=== PATIENT | male | born 1970 | race Caucasian/White ===

== ENCOUNTER 2017-01-06 02:28 | Inpatient (IN) | payer OTHER ==
[~2017-01-06] VITALS: Ht 175.3 cm; Wt 46.5 kg
[~2017-01-06 02:28] MED LIST: K1015L GT; LACO100 GT; LACT1TAB11 GT; LEVO100T4 GT; LINA145C GT; MIDO5TAB23 GT; RANI150T7 GT; VIT500LI GT; VITAD1000 GT
[2017-01-06] MEDS ORDERED: IPRATROPIUM BROMIDE 0.5 MG/2.5 ML NEB SOLUTION NEB ONE (02:45)
[2017-01-06] MEDS ORDERED: ALBUTEROL SULFATE 5 MG/ML 20 ML NEB SOLN [BULK] NEB ONE (02:45)
[2017-01-06] MEDS ORDERED: 0.9% SODIUM CHLORIDE 5 ML NEB SOLUTION NEB ONE (02:51)
[2017-01-06 03:08] LABS: BASOPHILS % (AUTO) 0.4 % (0.0-2.0); EOSINOPHILS % (AUTO) 0.1 % (1.0-6.0); HEMATOCRIT 34.4 % (41-53); HEMOGLOBIN 11.6 g/dL (13.5-17.5); LYMPHOCYTES # (AUTO) 2.3 K/uL (1.0-4.8); LYMPHOCYTES % (AUTO) 21.4 % (22.0-44.0); MEAN CORPUSCULAR HGB CONC 33.8 G/dL (31.0-37.0); MEAN CORPUSCULAR VOLUME 92 fL (80-100); MONOCYTES # (AUTO) 0.4 K/uL (0.1-1.0); MONOCYTES % (AUTO) 3.5 % (2.0-9.0); NEUTROPHILS # (AUTO) 8.2 K/uL (1.8-7.7); NEUTROPHILS % (AUTO) 74.6 % (40.0-70.0); PLATELET COUNT (AUTO) 262 K/uL (150-450); RED BLOOD CELL COUNT(AUTO) 3.75 MIL/uL (4.50-5.90); RED CELL DISTRIBUTION WIDTH 17.6 % (11.5-14.5)
[2017-01-06 03:19] LABS: ANION GAP 8 mmol/L (8-16); CALCIUM, TOTAL 8.5 mg/dL (8.8-10.5); CARBON DIOXIDE 27 mmol/L (22-29); CHLORIDE 99 mmol/L (98-107); GLOMERULAR FILTR. RATE CALC > 60 mL/min (>60); INR 1.1 (0.9-1.1); POTASSIUM 3.9 mmol/L (3.5-5.1); PROTHROMBIN TIME 11.4 SEC (9.4-11.6); SODIUM SERUM 134 mmol/L (136-145); UREA NITROGEN, BLOOD 20 mg/dL (7-18)
[2017-01-06 03:25] LABS: ALANINE AMINOTRANSFERASE 79 U/L (12-78); ALBUMIN 2.7 g/dL (3.4-5.0); ASPARTATE AMINOTRANSFERASE 43 U/L (15-37); BILIRUBIN,TOTAL 0.4 mg/dL (0.1-1.0); TOTAL PROTEIN, SERUM 8.3 g/dL (6.4-8.2)
[2017-01-06 03:26] LABS: AMMONIA 23 umol/L (11-32)
[2017-01-06 03:27] LABS: LACTIC ACID 1.7 mmol/L (0.4-2.0); TROPONIN I < 0.02 ng/mL (0.00-0.05)
[2017-01-06 03:32] LABS: B-TYPE NATRIURETIC PEPTIDE 134 pg/mL (0-100)
[2017-01-06] MEDS ORDERED: SODIUM CHLORIDE 0.9% 1,000 ML IV ONE ×3 (04:00→05:30)
[2017-01-06] MEDS ORDERED: VANCOMYCIN HCL 1.25 GM in DEXTROSE 5%-WATER 250 ML IV ONE (04:15)
[2017-01-06 04:17] LABS: ABG A-A DIFF O2 226.9 mmHg (10-20.0); ABG BASE EXCESS 0.6 mmol/L (-2.0-3.0); ABG HCO3 25.5 mmol/L (22.0-26.0); ABG OXYHEMOGLOBIN 95.9 % (94.0-100.0); ABG PCO2 33 mmHg (35-45); ABG PH 7.476 (7.35-7.450); ALLEN TEST, BLOOD GAS POS; TEMPERATURE, FAHRENHEIT, BG 100.4 FAHREN (96.0-98.6)
[2017-01-06 04:18] LABS: IPAP, BG 12 cm H2O
[2017-01-06 04:28] LABS: GLUCOSE,POINT OF CARE 141 MG/DL (70-110)
[2017-01-06] MEDS ORDERED: ACETAMINOPHEN 650 MG/ISO-OSM 65 ML IV ONE (04:30)
[2017-01-06] MEDS ORDERED: ONDANSETRON HCL 4 MG/2 ML VIAL IVP PRN ×2 (04:45→05:30)
[2017-01-06] MEDS ORDERED: ACETAMINOPHEN 325 MG TABLET PO PRN ×2 (04:45→05:30)
[2017-01-06] MEDS ORDERED: 0.9% SODIUM CHLORIDE 10 ML SYRINGE IVP PRN (04:45)
[2017-01-06] MEDS ORDERED: *CLINICAL-LEVOFLOXACIN IVPB DOSING CLINICAL ONE ×2 (05:30)
[2017-01-06] MEDS ORDERED: ZOLPIDEM TARTRATE 5 MG TABLET PO PRN (05:30)
[2017-01-06] MEDS ORDERED: MAGNESIUM HYDROXIDE SUSPENSION 30 ML UDCUP PO PRN (05:30)
[2017-01-06] MEDS ORDERED: HYDROCODONE/ACETAMINOPHEN 5-325 MG TABLET PO PRN (05:30)
[2017-01-06] MEDS ORDERED: MORPHINE SULFATE 2 MG/ML SYRINGE IVP PRN (05:30)
[2017-01-06] MEDS ORDERED: BISACODYL 10 MG RECTAL RECTAL SUPPOSITORY PR PRN (05:30)
[2017-01-06 05:47] VITALS: BP 111/70
[2017-01-06] MEDS ORDERED: PIPERACILLIN/TAZO 3.375 GM/D5W 50 ML IV SCH (06:00)
[2017-01-06] MEDS: LEVOFLOXACIN 750 MG/D5% WATER 150 ML IV SCH (06:40)
[2017-01-06 08:15] VITALS: BP 90/70
[2017-01-06] MEDS ORDERED: PNEUMOCOCCAL VACCINE POLYVALENT 0.5 ML VIAL [PPSV23] IM ONE (08:30)
[2017-01-06] MEDS ORDERED: INFLUENZA VIRUS VACCINE QVS 2017-18 (3YR+)/PF 60 MCG/0.5 ML SYRINGE IM ONE (08:30)
[2017-01-06] MEDS: HEPARIN SODIUM,PORCINE 5,000 UNITS/ML VIAL SQ SCH ×2 (09:27→16:36)
[2017-01-06] MEDS: CLINDAMYCIN 600 MG/D5% WATER 50 ML IV SCH ×2 (09:27→16:33)
[2017-01-06] MEDS: LEVOTHYROXINE SODIUM 100 MCG TABLET GT SCH (09:28)
[2017-01-06] MEDS: DOCUSATE SODIUM 100 MG CAPSULE PO SCH ×2 (09:28→21:58)
[2017-01-06] MEDS: LINACLOTIDE 145 MCG CAPSULE GT SCH (09:28)
[2017-01-06] MEDS: MIDODRINE HCL 5 MG TABLET GT SCH ×2 (09:28→21:57)
[2017-01-06] MEDS: CHOLECALCIFEROL (VIT D3) 1,000 UNITS TABLET GT SCH (09:28)
[2017-01-06] MEDS: LACTASE 3,000 UNIT TABLET GT SCH (09:29)
[2017-01-06] MEDS: LACOSAMIDE 100 MG TABLET GT SCH ×2 (09:43→21:57)
[2017-01-06] MEDS: RANITIDINE HCL 150 MG TABLET GT SCH (09:43)
[2017-01-06] MEDS: ASCORBIC ACID 500 MG TABLET GT SCH (09:43)
[2017-01-06 12:00] VITALS: BP 111/76
[2017-01-06] MEDS ORDERED: VANCOMYCIN HCL 1 GM/D5% WATER 200 ML IV SCH (16:00)
[2017-01-06 16:02] VITALS: BP 119/70
[2017-01-06 20:19] VITALS: BP 114/57
[2017-01-06 20:31] LABS: ABG A-A DIFF O2 40.9 mmHg (10-20.0); ABG BASE EXCESS 1.4 mmol/L (-2.0-3.0); ABG HCO3 26.2 mmol/L (22.0-26.0); ABG OXYHEMOGLOBIN 97.5 % (94.0-100.0); ABG PCO2 29 mmHg (35-45); ABG PH 7.531 (7.35-7.450); TEMPERATURE, FAHRENHEIT, BG 99.4 FAHREN (96.0-98.6)
[2017-01-06 20:32] LABS: ALLEN TEST, BLOOD GAS Positive
[2017-01-07] MEDS ORDERED: SODIUM CHLORIDE 0.9% 100 ML ONE (00:19)
[2017-01-07] MEDS: HEPARIN SODIUM,PORCINE 5,000 UNITS/ML VIAL SQ SCH ×3 (00:28→16:58)
[2017-01-07] MEDS: CLINDAMYCIN 600 MG/D5% WATER 50 ML IV SCH ×3 (00:28→16:53)
[2017-01-07] MEDS ORDERED: SODIUM CHLORIDE 0.9% 1,000 ML IV SCH (02:30)
[2017-01-07 04:54] VITALS: BP 108/59
[2017-01-07 06:02] LABS: ANION GAP 9 mmol/L (8-16); CALCIUM, TOTAL 8.6 mg/dL (8.8-10.5); CARBON DIOXIDE 25 mmol/L (22-29); CHLORIDE 102 mmol/L (98-107); CREATININE 0.61 mg/dL (0.60-1.30); GLOMERULAR FILTR. RATE CALC > 60 mL/min (>60); POTASSIUM 3.6 mmol/L (3.5-5.1); SODIUM SERUM 136 mmol/L (136-145); UREA NITROGEN, BLOOD 11 mg/dL (7-18)
[2017-01-07] MEDS: LEVOFLOXACIN 750 MG/D5% WATER 150 ML IV SCH (06:07)
[2017-01-07 07:12] VITALS: BP 94/58
[2017-01-07 07:25] LABS: BASOPHILS % (AUTO) 0.2 % (0.0-2.0); EOSINOPHILS % (AUTO) 0.3 % (1.0-6.0); HEMATOCRIT 28.2 % (41-53); HEMOGLOBIN 9.6 g/dL (13.5-17.5); LYMPHOCYTES # (AUTO) 0.9 K/uL (1.0-4.8); LYMPHOCYTES % (AUTO) 13.4 % (22.0-44.0); MEAN CORPUSCULAR HEMOGLOBIN 31.5 pg (26.0-34.0); MEAN CORPUSCULAR HGB CONC 33.9 G/dL (31.0-37.0); MEAN CORPUSCULAR VOLUME 93 fL (80-100); MONOCYTES # (AUTO) 0.4 K/uL (0.1-1.0); MONOCYTES % (AUTO) 5.1 % (2.0-9.0); NEUTROPHILS # (AUTO) 5.7 K/uL (1.8-7.7); PLATELET COUNT (AUTO) 205 K/uL (150-450); RED BLOOD CELL COUNT(AUTO) 3.04 MIL/uL (4.50-5.90); RED CELL DISTRIBUTION WIDTH 17.6 % (11.5-14.5)
[2017-01-07 08:46] LABS: APPEARANCE,URINE CLEAR (CLEAR); GLUCOSE, URINE (UA) NEGATIVE (NEGATIVE); KETONES,URINE NEGATIVE (NEGATIVE); LEUKOCYTE ESTERASE ,URINE NEGATIVE (NEGATIVE); OCCULT BLOOD,URINE NEGATIVE (NEGATIVE); PROTEIN,URINE NEGATIVE (NEGATIVE)
[2017-01-07] MEDS: CHOLECALCIFEROL (VIT D3) 1,000 UNITS TABLET GT SCH (08:56)
[2017-01-07] MEDS: DOCUSATE SODIUM 100 MG CAPSULE PO SCH (08:56)
[2017-01-07] MEDS: ASCORBIC ACID 500 MG TABLET GT SCH (08:57)
[2017-01-07 08:58] LABS: RBC,URINE None Seen /HPF (0-2); RENAL EPITHELIAL CELLS,URINE Few /LPF (None Seen)
[2017-01-07] MEDS: MIDODRINE HCL 5 MG TABLET GT SCH (08:58)
[2017-01-07] MEDS: LEVOTHYROXINE SODIUM 100 MCG TABLET GT SCH (08:58)
[2017-01-07] MEDS: RANITIDINE HCL 150 MG TABLET GT SCH (08:59)
[2017-01-07] MEDS: LINACLOTIDE 145 MCG CAPSULE GT SCH (09:00)
[2017-01-07] MEDS: LACOSAMIDE 100 MG TABLET GT SCH (09:00)
[2017-01-07] MEDS: LACTASE 3,000 UNIT TABLET GT SCH (09:01)
[2017-01-07 11:33] VITALS: BP 97/60
[2017-01-07 15:57] VITALS: BP 103/67
[2017-01-07] MEDS ORDERED: LINA145C GT (17:26)
[2017-01-07] MEDS ORDERED: ASCO500 GT (17:27)
[2017-01-07] MEDS ORDERED: DSS100 PO (17:29)
[2017-01-07] MEDS ORDERED: CLIN600P10 IV (17:29)
[2017-01-07] MEDS ORDERED: [UNRECOGNIZED DRUG - CODE] GT (17:30)
[2017-01-07] MEDS ORDERED: HEPA500018 SQ (17:30)
[2017-01-07] MEDS ORDERED: LEVO750P3 IV (17:31)
[2017-01-07] MEDS ORDERED: NS1000 IV (17:34)
[2017-01-07] MEDS ORDERED: ACET-2247 PO (17:34)
[2017-01-07] MEDS ORDERED: BISA5TAB12 PO (17:35)
[2017-01-07] MEDS ORDERED: MOM30 PO (17:35)
[2017-01-09 09:59] LABS: GLUCOSE,POINT OF CARE 79 MG/DL (70-110)
[2017-01-12 19:57] LABS: GLUCOSE,POINT OF CARE 80 MG/DL (70-110)
== END 2017-01-07 20:00 | disposition short-term general hospital (02) | DRG 720 ==
LOC: EMS 02:29 → 5S 04:30
PROVIDERS: ADMIT Internal Medicine; ATTEND Internal Medicine
PROC: 5A09357 Assistance with Respiratory Ventilation, Less than 24 Consecutive Hours, Continuous Positive Airway Pressure (ICD-10-PCS; principal; 2017-01-06)
DX: A41.9 Sepsis, unspecified organism (principal); J96.01 Acute respiratory failure with hypoxia; J69.0 Pneumonitis due to inhalation of food and vomit; I50.9 Heart failure, unspecified; F03.90 Unspecified dementia, unspecified severity, without behavioral disturbance, psychotic disturbance, mood disturbance, and anxiety; E03.9 Hypothyroidism, unspecified; G40.909 Epilepsy, unspecified, not intractable, without status epilepticus; Q90.9 Down syndrome, unspecified; Z85.01 Personal history of malignant neoplasm of esophagus; Z87.01 Personal history of pneumonia (recurrent); Z92.21 Personal history of antineoplastic chemotherapy; Z88.8 Allergy status to other drugs, medicaments and biological substances; Z95.0 Presence of cardiac pacemaker
CPT/HCPCS: 71250; 82805; 82948; 82962; 83605; 87040; 87081; 93005; 94640; 94660; 94799; 96361; 96365; 96368; 99285; J0131; J1644; J1956; J2543; J3370; J3490; J7030; J7050; J7060